=== PATIENT | female | born 1960 | race Caucasian/White ===

== ENCOUNTER → 2019-05-04 11:20 | Outpatient (CLI) | payer OTHER, SELFPAY ==
[2019-05-04 12:22] LABS: Add Manual Diff / Slide Review NO; Basophils Absolute Auto 100 /uL (0-100); Eosinophils Absolute Auto 200 /uL (0-450); Eosinophils Percent Auto 2.8 % (2-4); Hematocrit 42.1 % (36-46); Hemoglobin 14.9 g/dL (12.0-16.0); Lymphocytes Absolute Auto 2800 /uL (1100-4500); Lymphocytes Percent Auto 44.6 % (25-40); Mean Corpuscular HGB Conc 35.4 % (30-36); Mean Corpuscular Volume 90.6 fL (80-100); Monocytes Absolute Auto 400 /uL (0-900); Monocytes Percent Auto 6.8 % (3-14); Neutrophils Absolute Auto 2800 /uL (1500-7000); Neutrophils Percent Auto 44.8 % (50-75); Platelet Count 250 X10^3/uL (150-400); Red Blood Cell Count 4.65 X10^6/uL (4.0-5.2); Red Cell Distribution Width 12.5 % (11.6-14.8); White Blood Cell Count 6.3 X10^3/uL (4.5-11.0)
[2019-05-04 12:50] LABS: HEMOLYSIS < 15 (0-50); Potassium 4.5 mmol/L (3.4-5.1)
[2019-05-04 12:52] LABS: Alanine Aminotransferase 24 IU/L (9-52); Albumin 4.8 g/dL (3.5-5.0); Albumin Globulin Ratio 1.6 (1.0-2.8); Alkaline Phosphatase 56 U/L (38-126); Aspartate Aminotransferase 27 IU/L (14-36); BUN Creatinine Ratio 25.7 (6-22); Bilirubin Total 0.8 mg/dL (0.2-1.3); Blood Urea Nitrogen 18 mg/dL (7-17); Calcium 9.9 mg/dL (8.4-10.2); Carbon Dioxide 29 mmol/L (22-32); Chloride 100 mmol/L (98-107); Cholesterol 167 mg/dL (140-199); Estimated Glomerular Filt Rate > 60.0 mL/min (>60); Glucose 97 mg/dL (70-100); HDL Cholesterol 51 mg/dL (40-60); LDL Cholesterol Calculated 85 mg/dL (<100); Sodium 140 mmol/L (137-145); Total Protein 7.8 g/dL (6.3-8.2); Triglycerides 154 mg/dL (35-150)
== END ==
PROVIDERS: Visit Provider Naturopath
DX: Z00.00 Encounter for general adult medical examination without abnormal findings (principal)
CPT/HCPCS: 36415; 80053; 80061; 85025

== ENCOUNTER → 2019-10-12 07:54 | Outpatient (CLI) | payer OTHER, SELFPAY ==
--- NOTE | 2019-10-12 | DI.MG.S_ITS ---
BILATERAL DIGITAL SCREENING MAMMOGRAM 3D/2D WITH CAD: 10/12/2019 CLINICAL: Routine screening. Comparison is made to exams dated: 09/30/2017 mammogram, 08/20/2016 mammogram, and 06/19/2014 mammogram - [facility]. There are scattered fibroglandular elements in both breasts. Current study was also evaluated with a Computer Aided Detection (CAD) system. No significant masses, calcifications, or other findings are seen in either breast. There has been no significant interval change. IMPRESSION: NEGATIVE There is no mammographic evidence of malignancy. A 1 year screening mammogram is recommended. This exam was interpreted at Station ID: [id number]. NOTE: For mammograms, a report in lay terms will be sent to the patient. Approximately 15% of breast malignancies will not be visualized mammographically. In the management of a palpable breast mass, a negative mammogram must not discourage biopsy of a clinically suspicious lesion. Electronically Signed By: Benito crane/bobbi:10/12/2019 09:18:28 copy to: JESUS DE LEON letter sent: Normal Exam ACR BI-RADS Category 1: Negative 3341F
== END ==
PROVIDERS: Visit Provider Nurse Practitioner Family
DX: Z12.31 Encounter for screening mammogram for malignant neoplasm of breast (principal)
CPT/HCPCS: 77063; 77067

== ENCOUNTER → 2019-11-08 18:49 | Outpatient (ROUT) | payer OTHER, SELFPAY | PROVIDERS: Visit Provider Dermatology | DX: Z71.1 Person with feared health complaint in whom no diagnosis is made (principal) | CPT/HCPCS: 87070; 87075; 87205 ==

== ENCOUNTER → 2020-10-15 17:24 | Outpatient (CLI) | payer OTHER, SELFPAY ==
--- NOTE | 2020-10-15 17:25 | DI.MG.S_ITS ---
BILATERAL DIGITAL SCREENING MAMMOGRAM 3D/2D WITH CAD: 10/15/2020 CLINICAL: Routine screening. Comparison is made to exams dated: 10/12/2019 mammogram - [facility], 09/30/2017 mammogram, and 08/20/2016 mammogram - [facility]. There are scattered fibroglandular elements in both breasts. Current study was also evaluated with a Computer Aided Detection (CAD) system. No significant masses, calcifications, or other findings are seen in either breast. There has been no significant interval change. IMPRESSION: NEGATIVE There is no mammographic evidence of malignancy. A 1 year screening mammogram is recommended. This exam was interpreted at Station ID: [id number]. NOTE: For mammograms, a report in lay terms will be sent to the patient. Approximately 15% of breast malignancies will not be visualized mammographically. In the management of a palpable breast mass, a negative mammogram must not discourage biopsy of a clinically suspicious lesion. Electronically Signed By: Mehdi mock/bobbi:10/16/2020 07:37:49 copy to: RYLAN DIAMOND letter sent: Normal Exam ACR BI-RADS Category 1: Negative 3341F
== END ==
PROVIDERS: PCP Nurse Practitioner Family; Referring Provider Nurse Practitioner Family; Visit Provider Nurse Practitioner Family
DX: Z12.31 Encounter for screening mammogram for malignant neoplasm of breast (principal)
CPT/HCPCS: 77063; 77067

== ENCOUNTER → 2021-04-01 12:53 | Outpatient (ROUT) | payer OTHER, SELFPAY | PROVIDERS: PCP Nurse Practitioner Family; Visit Provider Dermatology | DX: L02.91 Cutaneous abscess, unspecified (principal) | CPT/HCPCS: 87070; 87077; 87186; 87205 ==

== ENCOUNTER → 2021-11-27 10:09 | Outpatient (CLI) | payer OTHER, SELFPAY ==
--- NOTE | 2021-11-27 | DI.MG.S_ITS ---
BILATERAL DIGITAL SCREENING MAMMOGRAM 3D/2D WITH CAD: 11/27/2021 CLINICAL: Routine screening. Comparison is made to exams dated: 10/15/2020 mammogram, 10/12/2019 mammogram - [facility], and 09/30/2017 mammogram - [facility]. There are scattered fibroglandular elements in both breasts. Current study was also evaluated with a Computer Aided Detection (CAD) system. There is a new 0.5 cm oval asymmetry with a circumscribed margin in the right breast middle depth medial region seen on the craniocaudal view only 8 cm from the nipple. No other significant masses, calcifications, or other findings are seen in either breast. IMPRESSION: INCOMPLETE: NEEDS ADDITIONAL IMAGING EVALUATION The new 0.5 cm oval asymmetry in the right breast is indeterminate. Additional views with possible ultrasound are recommended. This exam was interpreted at Station ID: [id number]. NOTE: For mammograms, a report in lay terms will be sent to the patient. Approximately 15% of breast malignancies will not be visualized mammographically. In the management of a palpable breast mass, a negative mammogram must not discourage biopsy of a clinically suspicious lesion. Electronically Signed By: Rito Barrios acr/:11/27/2021 12:13:49 copy to: RYLAN DIAMOND letter sent: Additional Imaging Needed ACR BI-RADS Category 0: Incomplete 3340F
== END ==
PROVIDERS: PCP Nurse Practitioner Family; Referring Provider Nurse Practitioner Family; Visit Provider Nurse Practitioner Family
DX: Z12.31 Encounter for screening mammogram for malignant neoplasm of breast (principal)
CPT/HCPCS: 77063; 77067

== ENCOUNTER → 2022-01-11 08:42 | Outpatient (CLI) | payer OTHER, SELFPAY ==
--- NOTE | 2022-01-11 | DI.MG.S_ITS ---
UNILATERAL RIGHT DIGITAL DIAGNOSTIC MAMMOGRAM 3D/2D WITH ADDITIONAL VIEWS: 01/11/2022 CLINICAL: Patient returns today to evaluate an asymmetry in the right breast. Comparison is made to exams dated: 11/27/2021 mammogram, 10/15/2020 mammogram, and 10/12/2019 mammogram - [facility]. There are scattered fibroglandular elements in right breast. The previously described 0.5 cm oval asymmetry with a circumscribed margin in the right breast middle depth medial region seen on the craniocaudal view only 8 cm from the nipple is no longer seen. The previously noted asymmetry disperses with additional views and is consistent with summation artifact. No other significant masses or calcifications are seen in the breast. IMPRESSION: BENIGN The previously described asymmetry disperses with additional views and is consistent with summation artifact. There is no mammographic evidence of malignancy. A 1 year screening mammogram is recommended. Findings and recommendations were conveyed to the patient during today's evaluation. This exam was interpreted at Station ID: [id number]. NOTE: For mammograms, a report in lay terms will be sent to the patient. Approximately 15% of breast malignancies will not be visualized mammographically. In the management of a palpable breast mass, a negative mammogram must not discourage biopsy of a clinically suspicious lesion. Electronically Signed By: Brian brandt/:01/11/2022 09:13:13 Entry: - 01/12/2022 15:05:37 copy to: RYLAN DIAMOND letter sent: Normal Exam ACR BI-RADS Category 2: Benign Finding(s) 3342F
== END ==
PROVIDERS: PCP Nurse Practitioner Family; Referring Provider Nurse Practitioner Family; Visit Provider Nurse Practitioner Family
DX: R92.8 Other abnormal and inconclusive findings on diagnostic imaging of breast (principal); N64.89 Other specified disorders of breast
CPT/HCPCS: 77065; G0279

== ENCOUNTER → 2022-07-16 07:35 | Outpatient (CLI) | payer OTHER, SELFPAY | PROVIDERS: PCP Nurse Practitioner Family; Visit Provider Registered Nurse | DX: N39.0 Urinary tract infection, site not specified (principal) | CPT/HCPCS: 87077; 87086; 87186 ==

== ENCOUNTER → 2023-12-25 09:09 | Outpatient (CLI) | payer OTHER, SELFPAY ==
--- NOTE | 2023-12-25 09:10 | DI.MRI.S_ITS ---
PROCEDURE: MR LUMBAR SPINE WO CON INDICATIONS: Low back pain TECHNIQUE: Noncontrast sagittal T1 spin echo and T2 fast echo, sagittal STIR, and T2 fast spin echo through the lumbar spine. In cases with scoliosis, additional coronal T2 fast spin echo may be performed. COMPARISON: Outside Facility, RG, DENYS L-SPINE 2-3V, 12/22/2022, 13:47. FINDINGS: Image quality: Excellent. Alignment and Curvature: Trace retrolisthesis L1 on L2 and L2 on L3. 6 mm anterolisthesis L4 on L5. Bone Marrow: Marrow is of normal overall signal. No acute vertebral body compression fractures. Spinal Cord: Conus medullaris terminates at the T12-L1 level. Visualized cord demonstrates normal signal and size. Paraspinous Soft Tissues: No paravertebral masses. T12-L1: Normal appearance. L1-L2: Mild disc height loss. Trace retrolisthesis L1 on L2. Mild facet hypertrophy. No canal stenosis or foraminal stenosis. L2-L3: Trace retrolisthesis L2 on L3. Facet hypertrophy. No canal stenosis or foraminal stenosis. L3-L4: Disc bulge. Facet hypertrophy. No canal stenosis. Vziq-rn-chiijdla left foraminal stenosis. L4-L5: Exuberant facet hypertrophy. 6 mm anterolisthesis L4 on L5. Moderate canal stenosis. Bmpx-rw-xceyvjka bilateral foraminal stenosis. L5-S1: Disc bulge. Somewhat exuberant bilateral facet hypertrophy. No canal stenosis or significant foraminal stenosis. IMPRESSION: 1. There is underlying multilevel facet hypertrophy, exuberant at L4-L5 and L5-S1. 2. There is moderate canal stenosis at L4-L5. 3. Relatively mild multilevel foraminal narrowing. No foraminal nerve root impingement. Dictated by: Maciej Neves M.D. on 12/26/2023 at 10:01 Approved by: Maciej Neves M.D. on 12/26/2023 at 10:18
== END ==
LOC: MRI 09:09
PROVIDERS: PCP Naturopath; Referring Provider Anesthesiology; Visit Provider Anesthesiology
DX: M47.816 Spondylosis without myelopathy or radiculopathy, lumbar region (principal); M47.817 Spondylosis without myelopathy or radiculopathy, lumbosacral region; M48.061 Spinal stenosis, lumbar region without neurogenic claudication; M54.9 Dorsalgia, unspecified
CPT/HCPCS: 72148

== ENCOUNTER → 2024-09-18 08:58 | Outpatient (CLI) | payer OTHER, SELFPAY ==
--- NOTE | 2024-09-18 09:00 | DI.RAD.S_ITS ---
PROCEDURE: XR KNEE RT 3V INDICATIONS: bilateral knee pain TECHNIQUE: 3 views of the knee were acquired. COMPARISON: None. FINDINGS: Bones: No fractures or dislocations. Medial and patellofemoral compartment joint space loss and moderate spur formation. No suspicious bony lesions. Soft tissues: No joint effusion. No suspicious soft tissue calcifications. IMPRESSION: Mild osteoarthritic changes involving patellofemoral and medial compartments. Dictated by: Chelsea Vale M.D. on 09/18/2024 at 20:27 Approved by: Chelsea Vale M.D. on 09/18/2024 at 20:27
--- NOTE | 2024-09-18 09:00 | DI.RAD.S_ITS ---
PROCEDURE: XR SHOULDER LT MIN 2V INDICATIONS: Left shoulder pain TECHNIQUE: Three views of the shoulder were acquired. COMPARISON: None. FINDINGS: Bones: No fractures or dislocations. No suspicious bony lesions. Visualized ribs appear intact. Soft tissues: No suspicious soft tissue calcifications. IMPRESSION: No acute bony abnormality. Dictated by: Chelsea Vale M.D. on 09/18/2024 at 20:28 Approved by: Chelsea Vale M.D. on 09/18/2024 at 20:28
--- NOTE | 2024-09-18 09:00 | DI.RAD.S_ITS ---
PROCEDURE: XR KNEE LT 3V INDICATIONS: bilateral knee pain TECHNIQUE: 3 views of the knee were acquired. COMPARISON: None. FINDINGS: Bones: No fractures or dislocations. Patellofemoral compartment joint space loss, sclerosis, and spur formation. Moderate lateral and medial compartment spurring. No suspicious bony lesions. Soft tissues: Small joint effusion. No suspicious soft tissue calcifications. IMPRESSION: Tricompartment osteoarthritic changes, most severe at the patellofemoral compartment. Dictated by: Chelsea Vale M.D. on 09/18/2024 at 20:25 Approved by: Chelsea Vale M.D. on 09/18/2024 at 20:27
== END ==
PROVIDERS: PCP Family Medicine; Referring Provider Family Medicine; Visit Provider Family Medicine
DX: M25.561 Pain in right knee (principal); M25.562 Pain in left knee; M25.512 Pain in left shoulder; M25.462 Effusion, left knee
CPT/HCPCS: 73030; 73562

== ENCOUNTER → 2024-09-19 07:00 | Outpatient (CLI) | payer OTHER, SELFPAY ==
[2024-09-19 08:15] LABS: Alanine Aminotransferase 19 IU/L (<35); Albumin 4.5 g/dL (3.5-5.0); Albumin Globulin Ratio 1.9 (1.0-2.8); Alkaline Phosphatase 61 U/L (38-126); Aspartate Aminotransferase 29 IU/L (14-36); Bilirubin Total 0.5 mg/dL (0.2-1.3); Blood Urea Nitrogen 20 mg/dL (7-17); Calcium 9.5 mg/dL (8.4-10.2); Carbon Dioxide 26 mmol/L (22-32); Chloride 106 mmol/L (98-107); Cholesterol 207 mg/dL (140-199); Estimated Glomerular Filt Rate > 60 mL/min (>60); Globulin 2.4 g/dL (1.7-4.1); Glucose 107 mg/dL (80-110); HDL Cholesterol 59 mg/dL (40-60); HEMOLYSIS < 15 (0-50); LDL Cholesterol Calculated 119 mg/dL (<100); Potassium 4.4 mmol/L (3.4-5.1); Sodium 140 mmol/L (137-145); Total Protein 6.9 g/dL (6.3-8.2); Triglycerides 147 mg/dL (35-150)
[2024-09-19 08:31] LABS: Free T3, Triiodothyronine Free 3.03 pg/mL (2.77-5.27)
[2024-09-19 08:34] LABS: Vitamin D 25 Hydroxy (D3) 53.2 ng/mL (30.0-100.0)
[2024-09-19 08:44] LABS: Thyroid Stimulating Hormone 4.99 uIU/mL (0.47-4.68)
[2024-09-20 16:08] LABS: Dehydroepiandrosterone Sulfate 81.9 ug/dL (29.4-220.5)
== END ==
PROVIDERS: PCP Family Medicine; Referring Provider Family Medicine; Visit Provider Family Medicine
DX: I35.1 Nonrheumatic aortic (valve) insufficiency (principal); I10 Essential (primary) hypertension; E78.5 Hyperlipidemia, unspecified; N95.1 Menopausal and female climacteric states; R53.83 Other fatigue; E06.3 Autoimmune thyroiditis
CPT/HCPCS: 36415; 80053; 80061; 82306; 82627; 82670; 83525; 84402; 84403; 84439; 84443; 84481

== ENCOUNTER → 2024-12-25 09:36 | Outpatient (CLI) | payer OTHER, SELFPAY ==
[2024-12-25 10:14] LABS: Add Manual Diff / Slide Review NO; Basophils Absolute Auto 100 /uL (0-100); Basophils Percent Auto 0.7 % (0-2); Eosinophils Absolute Auto 100 /uL (0-450); Eosinophils Percent Auto 0.7 % (2-4); Hematocrit 38.6 % (36-46); Lymphocytes Absolute Auto 1800 /uL (1100-4500); Lymphocytes Percent Auto 20.3 % (25-40); Mean Corpuscular HGB Conc 33.6 % (30-36); Mean Corpuscular Hemoglobin 28.6 PG (26-34); Mean Corpuscular Volume 85.2 fL (80-100); Monocytes Absolute Auto 400 /uL (0-900); Neutrophils Absolute Auto 6500 /uL (1500-7000); Neutrophils Percent Auto 73.3 % (50-75); Platelet Count 308 X10^3/uL (150-400); Red Blood Cell Count 4.53 X10^6/uL (4.0-5.2); Red Cell Distribution Width 13.8 % (11.6-14.8); White Blood Cell Count 8.8 X10^3/uL (4.5-11.0)
[2024-12-25 10:31] LABS: D Dimer 477 ng/ml (<500)
[2024-12-25 10:37] LABS: Erythrocyte Sedimentation Rate 27 MM/HR (0-20)
[2024-12-25 10:43] LABS: Uric Acid 6.4 mg/dL (2.5-6.2)
== END ==
PROVIDERS: PCP Family Medicine; Referring Provider Physician Assistant; Visit Provider Physician Assistant
DX: M25.471 Effusion, right ankle (principal); M79.89 Other specified soft tissue disorders
CPT/HCPCS: 36415; 84550; 85025; 85379; 85651

== ENCOUNTER → 2024-12-31 11:10 | Outpatient (CLI) | payer OTHER, SELFPAY | PROVIDERS: PCP Family Medicine; Referring Provider Family Medicine; Visit Provider Family Medicine | DX: R30.0 Dysuria (principal) | CPT/HCPCS: 87086 ==

== ENCOUNTER → 2025-03-07 11:06 | Outpatient (CLI) | payer OTHER, SELFPAY ==
[2025-03-07 12:32] LABS: Erythrocyte Sedimentation Rate 19 MM/HR (0-20)
== END ==
PROVIDERS: PCP Family Medicine; Referring Provider Family Medicine; Visit Provider Family Medicine
DX: M25.461 Effusion, right knee (principal)
CPT/HCPCS: 36415; 84550; 85651

== ENCOUNTER → 2025-03-08 14:30 | Outpatient (CLI) | payer OTHER, SELFPAY ==
--- NOTE | 2025-03-08 14:32 | DI.US.S_ITS ---
PROCEDURE: US PERIPH VENOUS LOW EXTREM RT INDICATIONS: pain TECHNIQUE: Real-time imaging, as well as color and pulse Doppler interrogation, were performed of the lower extremity deep veins from the inguinal ligament to the popliteal fossa, with documentation of the visualized calf veins. COMPARISON: None. FINDINGS: The common femoral, femoral, popliteal, and the visualized calf veins are normally compressible, and free of intraluminal thrombus. Color and pulse Doppler demonstrate normal phasic intraluminal flow. There is normal augmentation response to distal compression maneuver. IMPRESSION: No findings of lower extremity deep venous thrombosis. Dictated by: Vipin Snyder M.D. on 03/08/2025 at 15:13 Approved by: Vipin Snyder M.D. on 03/08/2025 at 15:13
== END ==
PROVIDERS: PCP Family Medicine; Referring Provider Family Medicine; Visit Provider Family Medicine
DX: M25.461 Effusion, right knee (principal)
CPT/HCPCS: 93971

== ENCOUNTER → 2025-03-16 15:43 | Outpatient (CLI) | payer OTHER, SELFPAY ==
--- NOTE | 2025-03-16 15:45 | DI.MRI.S_ITS ---
PROCEDURE: MR KNEE RT WO CON INDICATIONS: rule out simon's cyst, meniscal injury TECHNIQUE: Noncontrast sagittal PD fast spin echo and T2 fast spin echo with fat saturation, sagittal 3-D FLASH with fat saturation; coronal T1 spin echo and PD fast spin echo with fat saturation, and axial PD fast spin echo with fat saturation through the knee. COMPARISON: [facility], CR, XR KNEE RT 3V, 09/18/2024, 9:07. FINDINGS: Image quality: Excellent. Menisci: Medial extrusion of the medial meniscus is present. There is radial tearing of the posterior horn medial meniscus at the meniscal root ligament insertion site. Linear horizontal high T2 signal intensity traverses the inner, middle, and peripheral thirds of the posterior horn medial meniscus, demonstrating inferior articular surface extension, indicating horizontal tearing. Lateral meniscus is intact. Cruciate ligaments: The anterior and posterior cruciate ligaments appear intact. Medial structures: The medial collateral ligament appears intact, but demonstrates moderate surrounding T2 signal elevation. Visualized portions of the pes anserinus tendons appear normal. No abnormal bursal fluid. Moderate T2 signal elevation within the medial head of the gastrocnemius muscle. Lateral structures: The lateral collateral ligament, long and short heads of the biceps femoris tendon appear intact. The popliteus tendon appears normal. Iliotibial band appears normal. Anterior structures: The quadriceps and patellar tendons appear intact. Moderate T2 signal elevation within the quadriceps tendon at the patellar insertion site. Patellar alignment is normal. No femoral trochlear dysplasia or ventral trochlear prominence. No edema in the infrapatellar fat pad. Bones and cartilage: No bone marrow contusions or fractures. Subchondral cyst formation and degenerative marrow edema within the medial and lateral patellar facets as well as the patellar apex. Moderate tricompartmental periarticular osteophyte formation. Severe articular cartilage loss diffusely overlies the weight-bearing aspects of the medial femoral condyle and medial tibial plateau. Severe articular cartilage loss overlies the patellar apex and medial patellar facet. Joint space: There is a moderate knee joint effusion and a small Simon's cyst. Small ganglion cyst along the popliteus. Normal appearing synovial plicae are incidentally noted. IMPRESSION: 1. Medial meniscal tearing. 2. Tricompartmental osteoarthritis with associated articular cartilage loss. 3. Partial-thickness tearing of the medial head of the gastrocnemius muscle. 4. Knee joint effusion, Simon's cyst, and small ganglion cyst along the popliteus. 5. Medial collateral ligament strain. 6. Quadriceps tendinopathy. Dictated by: Lexi Beebe M.D. on 03/18/2025 at 13:18 Approved by: Lexi Beebe M.D. on 03/18/2025 at 13:21
== END ==
LOC: MRI 15:44
PROVIDERS: PCP Family Medicine; Referring Provider Family Medicine; Visit Provider Family Medicine
DX: S83.241A Other tear of medial meniscus, current injury, right knee, initial encounter (principal); S86.111A Strain of other muscle(s) and tendon(s) of posterior muscle group at lower leg level, right leg, initial encounter; M17.11 Unilateral primary osteoarthritis, right knee; M71.21 Synovial cyst of popliteal space [Baker], right knee; M67.461 Ganglion, right knee; M25.461 Effusion, right knee
CPT/HCPCS: 73721

== ENCOUNTER → 2025-07-26 08:13 | Outpatient (CLI) | payer OTHER, SELFPAY ==
--- NOTE | 2025-07-26 08:18 | DI.MG.S_ITS ---
MM screening mammo BI: 07/26/2025. BI-RADS: 1 CLINICAL: 65-year old female for bilateral screening mammogram. Tyrer-Cuzick lifetime risk of 6.9%. No personal or first-degree family history of breast cancer. PRIOR EXAMS 01/11/2022, 11/27/2021, 10/15/2020, 10/12/2019. MAMMOGRAPHY TECHNIQUE: 2D and 3D (tomosynthesis) digital mammographic views obtained, with additional images as needed for full coverage. Current study was also evaluated with a Computer Aided Detection (CAD) system. DENSITY B. There are scattered areas of fibroglandular density. MAMMOGRAPHY FINDINGS Bilateral: No suspicious mass, asymmetry, microcalcification, or other abnormality seen. IMPRESSION: * No evidence of malignancy. RECOMMENDATIONS Bilateral * Annual screening mammography. OVERALL ASSESSMENT CATEGORY BI-RADS-1: Negative. The [employer] recommends annual screening mammography beginning at age 40 for women with average risk of breast cancer. ELECTRONICALLY SIGNED: Sarah Garcia M.D. on 07/28/2025 at 11:25:56 PM PT Interpreting Station ID: [id number]
== END ==
LOC: MAMMO 08:16
PROVIDERS: Family Provider Family Medicine; PCP Family Medicine; Referring Provider Family Medicine; Visit Provider Family Medicine
DX: Z12.31 Encounter for screening mammogram for malignant neoplasm of breast (principal)
CPT/HCPCS: 77063; 77067

== ENCOUNTER → 2025-08-31 11:34 | Outpatient (CLI) | payer OTHER, SELFPAY ==
[2025-08-31 12:23] LABS: Add Manual Diff / Slide Review NO; Hematocrit 41.3 % (36-46); Hemoglobin 14.3 g/dL (12.0-16.0); Lymphocytes Absolute Auto 2600 /uL (1100-4500); Mean Corpuscular HGB Conc 34.6 % (30-36); Mean Corpuscular Hemoglobin 30.4 PG (26-34); Mean Corpuscular Volume 87.8 fL (80-100); Platelet Count 246 X10^3/uL (150-400)
[2025-08-31 13:13] LABS: HEMOLYSIS < 15 (0-50); Iron 120 ug/dL (37-170)
[2025-08-31 13:24] LABS: Percent Iron Saturation 43 % (15-50); Total Iron Binding Capacity 278 ug/dL (265-497); Transferrin 240 mg/dL (206-381)
[2025-08-31 13:32] LABS: Free T3, Triiodothyronine Free 3.33 pg/mL (2.77-5.27)
[2025-08-31 13:46] LABS: TSH w/ Reflex to FT4 0.03 uIU/mL (0.47-4.68)
[2025-08-31 13:50] LABS: Ferritin 42 ng/mL (11-264)
[2025-08-31 14:27] LABS: Free T4, Direct Thyroxine 1.59 ng/dL (0.78-2.19)
== END ==
PROVIDERS: Family Provider Family Medicine; PCP Family Medicine; Referring Provider Family Medicine; Visit Provider Family Medicine
DX: R53.83 Other fatigue (principal); E03.9 Hypothyroidism, unspecified; N95.8 Other specified menopausal and perimenopausal disorders
CPT/HCPCS: 82728; 83540; 83550; 84402; 84403; 84439; 84443; 84481; 85025

== ENCOUNTER 2025-09-02 10:14 | Day surgery (SDC) | payer OTHER, SELFPAY ==
[2025-07-26 07:45] VITALS: BMI 31.9
[2025-09-02 11:14] VITALS: BP 153/92; PULSE 59; RESP 14; TEMP 36.2; O2SAT 96
[2025-09-02] MEDS: LACTATED RINGERS 1,000 ML 42 ML IV (11:25)
--- NOTE | 2025-09-02 11:41 | P.HP_ITS ---
History of Present Illness History of Present Illness Date Patient Seen: 09/02/25 Time Patient Seen: 11:41 [place] [facility] [place]: Lula is a 65-year-old woman here for colonoscopy. Her last colonoscopy was in [place] in 2021 and she had multiple adenomas removed. [facility] Medical History (Updated 09/02/25 @ 11:41 by Nicanor Mendoza MD) 1st degree AV block History of third degree heart block History of second degree heart block Syncope (2017) Iron deficiency anemia Thoracic aortic aneurysm Hypothyroidism Osteoarthritis Herpes Fibroids Aortic valve regurgitation Skin cancer, basal cell Essential hypertension Benign paroxysmal positional vertigo of left ear Lumbar foraminal stenosis Spondylolisthesis at L4-L5 level Lumbar spondylosis Dorsalgia Bronchitis Surgical History (Updated 07/26/25 @ 07:40 by Staci Viramontes RN) Status post ORIF of fracture of ankle (12/2002) Anesthesia History of dilatation and curettage History of tonsillectomy (~1973) Family History (Updated 06/13/24 @ 19:03 by Yolanda Knight) Father Cancer History of heart disease Hyperlipidemia Hypertension Mother Hypertension Hyperlipidemia Stroke Grandmother Mental health problem Dementia Grandfather History of heart disease Grandmother History of heart disease Social History Smoking Status: Never smoker second hand exposure: Yes (father, childhood ) alcohol intake: current substance use type: marijuana Meds Home Medications and Allergies Home Medications ?Medication ?Instructions ?Recorded ?Confirmed ?Type evolocumab 140 mg/mL subcutaneous 140 mg SUBCUT Q2W 09/02/25 History pen injector (Beny Nolasco) losartan 50 mg tablet 50 mg PO DAILY 12/02/2308/13 History escitalopram oxalate 10 mg tablet 10 mg PO DAILY #90 t abs 06/07/25 09/02/25 Rx levothyroxine 100 mcg tablet 100 mcg PO DAILY #90 tabs 06/12/25 09/02/25 Rx testosterone (AndroGel) 7 mg topical DAILY #90 days 07/01/25 09/02/25 Rx Held on 09/02/25. Instructions: increased facial hair sodium,potassium,mag sulfates 17.5 See Rx Instructions PO .COMPLEX 07/19/25 09/02/25 Rx gram-3.13 gram-1.6 gram oral soln #354 mL (Suprep Bowel Prep Kit) Allergies Allergy/AdvReac Type Severity Reaction Status Date / Time milk AdvReac Mild Abdominal Verified 09/02/25 11:04 Pain Exam Vital Signs (past 8 hours): - 09/02/25 11:14 Temperature 97.2 F L Pulse Rate 59 L Respiratory Rate 14 Blood Pressure 153/92 H Pulse Oximetry 96 Oxygen Delivery Method Room Air Oxygen Delivery Method Room Air Const General: healthy appearing Assessment & Plan Assessment and plan (1) History of colon polyps: Status: Acute Plan Colonoscopy for history of polyps Time-Based Coding :: [TOTAL MINUTES] spent with patient and on the chart (including review of chart, obtaining history, exam, reviewing outside data, placing orders, documenting exam and treatment plan, and counseling patient) on [DATE]. PROFEE [employer] Worker Document charge(s): No
--- NOTE | 2025-09-02 12:27 | PM.OP.COLON ---
Operative Date/Time/Diagnoses Date of procedure: 09/02/25 Time of procedure: 12:27 Pre-op diagnosis: History of polyps Post-op diagnosis: same Procedure & Clinicians Study performed: Colonoscopy Same procedure(s) as scheduled: Yes Surgeon: Nicanor Mendoza Anesthesia Type: MAC +/- Procedure Notes Procedure in detail: Surgeon: Nicanor Mendoza MD Anesthesia: Jada Avila CRNA Procedure: The patient was brought to the endoscopy suite, placed in left lateral decubitus position. The patient was connected to monitoring devices. A time-out was performed. Sedation was administered. Once the patient was adequately sedated, a digital rectal exam was performed and was normal. The scope was then inserted and advanced to the cecum with some difficulty requiring repositioning and abdominal pressure. Eventually the appendiceal orifice was identified and photographed. The scope was then slowly withdrawn over greater than 6 minutes. The mucosa was thoroughly inspected. No polyps were found. The scope was retroflexed in the rectum. The scope was straightened and removed. The patient was awakened and brought to recovery. Scope withdrawal time: 6 minutes Sedation time: 32 minute Findings: Long tortuous colon with no polyps Estimated Blood Loss: 0 Complications: none Post-procedure Recommendations: Colonoscopy in 5 years Disposition: PACU
[2025-09-02 12:34] VITALS: BP 134/81; PULSE 60; TEMP 36.6; O2SAT 99
[2025-09-02 12:38] VITALS: BP 135/86; PULSE 58; RESP 20; TEMP 36.2; O2SAT 96
== END 2025-09-02 12:55 | disposition home or self-care (01) ==
PROVIDERS: Family Provider Family Medicine; PCP Family Medicine; Referring Provider Family Medicine; Visit Provider Surgery
PROC: 0DJD8ZZ Inspection of Lower Intestinal Tract, Via Natural or Artificial Opening Endoscopic (ICD-10-PCS; CPT 45378; principal; 2025-09-02 11:30)
DX: Z12.11 Encounter for screening for malignant neoplasm of colon (principal); Z86.0101 Personal history of adenomatous and serrated colon polyps
CPT/HCPCS: 45378; J2704; J7120